=== PATIENT | male | born 1980 | race African-American/Black ===

== ENCOUNTER 2017-03-21 18:41 | Emergency (ER) | payer MEDICAID, OTHER ==
[~2017-03-21] VITALS: Ht 180.3 cm; Wt 123.0 kg
[~2017-03-21 18:41] MED LIST: ALBU17AE26; BENADRYL; PREDNISONE; RISPERDAL
[2017-03-21] MEDS ORDERED: TRAMADOL 50MG TABLET PO ONE (21:15)
[2017-03-21 21:50] VITALS: BP 122/78
== END 2017-03-21 21:50 | disposition home or self-care (01) ==
LOC: ER 18:41
DX: M54.9 Dorsalgia, unspecified (principal); E11.9 Type 2 diabetes mellitus without complications; Z88.6 Allergy status to analgesic agent; Z88.8 Allergy status to other drugs, medicaments and biological substances
CPT/HCPCS: 99283

== ENCOUNTER 2017-06-19 12:15 | Emergency (ER) | payer MEDICAID, OTHER ==
[~2017-06-19] VITALS: Ht 180.3 cm; Wt 120.0 kg
[2017-06-19 12:16] VITALS: BP 131/78
== END 2017-06-19 18:03 | disposition left against medical advice (07) ==
LOC: ER 12:15
DX: M79.1 Myalgia (principal); Z53.21 Procedure and treatment not carried out due to patient leaving prior to being seen by health care provider

== ENCOUNTER 2017-06-30 22:54 | Emergency (ER) | payer MEDICAID ==
[~2017-06-30] VITALS: Ht 177.8 cm; Wt 120.0 kg
[2017-07-01 06:41] LABS: BASOPHILS % 0.8 % (0.0-2.0); EOSINOPHILS % 6.2 % (0.0-5.0); HEMATOCRIT. 42.9 % (42.0-52.0); HEMOGLOBIN. 14.4 g/dL (14.0-18.0); LYMPHOCYTES % 23.6 % (20.0-50.0); MEAN CORPUSCULAR HEMOGLOBIN 32.5 pg (28.0-32.0); MONOCYTES % 7.8 % (2.0-8.0); NEUTROPHILS % 61.6 % (40.0-76.0); PLATELET 138 x1000/uL (130-400); RED BLOOD CELL COUNT 4.42 mill/uL (4.7-6.1); RED CELL DISTRIBUTION WIDTH 13.3 % (11.6-14.6)
[2017-07-01 06:52] LABS: CHLORIDE 109 mEq/L (98-107)
[2017-07-01 06:58] LABS: ETHANOL BLOOD < 10 mg/dL
[2017-07-01 07:41] LABS: CLARITY URINE CLEAR (CLEAR); COLOR URINE YELLOW (YELLOW); KETONES URINE NEGATIVE (NEGATIVE); LEUKOCYTE ESTERASE URINE NEGATIVE (NEGATIVE); NITRITE URINE NEGATIVE (NEGATIVE); OCCULT BLOOD URINE NEGATIVE (NEGATIVE); PH URINE 6.5 (4.5-8.0); PROTEIN URINE NEGATIVE (NEGATIVE); SPECIFIC GRAVITY URINE 1.029 (1.005-1.030)
[2017-07-01 08:43] LABS: *AMPHETAMINES SCREEN URINE NEGATIVE (NEGATIVE)
[2017-07-01 08:44] LABS: *BARBITURATES SCREEN URINE NEGATIVE (NEGATIVE); *BENZODIAZEPINES SCREEN URINE NEGATIVE (NEGATIVE); *COCAINE SCREEN URINE NEGATIVE (NEGATIVE); CANNABINOID URINE SCREEN PRESUMTIVE POSITIVE (NEGATIVE); METHADONE URINE SCREEN NEGATIVE (NEGATIVE); OPIATES URINE SCREEN NEGATIVE (NEGATIVE); PHENCYCLIDINE URINE SCREEN PRESUMTIVE POSITIVE (NEGATIVE)
[2017-07-01 08:54] VITALS: BP 139/71
== END 2017-07-01 09:00 | disposition home or self-care (01) ==
LOC: ER 23:00
DX: S53.402A Unspecified sprain of left elbow, initial encounter (principal); Y00.XXXA Assault by blunt object, initial encounter; Y93.89 Activity, other specified; Y92.89 Other specified places as the place of occurrence of the external cause; I10 Essential (primary) hypertension; E11.9 Type 2 diabetes mellitus without complications; F12.10 Cannabis abuse, uncomplicated; F16.10 Hallucinogen abuse, uncomplicated; F17.210 Nicotine dependence, cigarettes, uncomplicated; Z88.6 Allergy status to analgesic agent; J45.909 Unspecified asthma, uncomplicated; Z88.8 Allergy status to other drugs, medicaments and biological substances
CPT/HCPCS: 36415; 73080; 80053; 80305; 80307; 80329; 81003; 82962; 85025; 99285; G0482

== ENCOUNTER 2017-12-25 13:15 | Emergency (ER) | payer MEDICAID, OTHER ==
[~2017-12-25] VITALS: Ht 180.3 cm; Wt 113.0 kg
[2017-12-25 14:36] LABS: BASOPHILS % 0.7 % (0.0-2.0); EOSINOPHILS % 6.6 % (0.0-5.0); HEMATOCRIT. 41.9 % (42.0-52.0); LYMPHOCYTES % 25.4 % (20.0-50.0); MEAN CORPUSCULAR HEMOGLOBIN 32.3 pg (28.0-32.0); MEAN CORPUSCULAR VOLUME 96.9 fL (80.0-94.0); MEAN PLATELET VOLUME 11.5 fl (7.4-10.4); MONOCYTES % 9.5 % (2.0-8.0); NEUTROPHILS % 57.8 % (40.0-76.0); PLATELET 135 x1000/uL (130-400); RED BLOOD CELL COUNT 4.32 mill/uL (4.7-6.1); RED CELL DISTRIBUTION WIDTH 13.1 % (11.6-14.6)
[2017-12-25 14:43] LABS: CHLORIDE 112 mEq/L (98-107)
[2017-12-25 14:50] LABS: ETHANOL BLOOD < 10 mg/dL
[2017-12-25] MEDS ORDERED: LORAZEPAM 1MG TABLET PO ONE (17:15)
[2017-12-25 18:12] LABS: *AMPHETAMINES SCREEN URINE NEGATIVE (NEGATIVE); *BARBITURATES SCREEN URINE NEGATIVE (NEGATIVE); *BENZODIAZEPINES SCREEN URINE NEGATIVE (NEGATIVE); *COCAINE SCREEN URINE NEGATIVE (NEGATIVE); CANNABINOID URINE SCREEN NEGATIVE (NEGATIVE); METHADONE URINE SCREEN NEGATIVE (NEGATIVE); OPIATES URINE SCREEN NEGATIVE (NEGATIVE); PHENCYCLIDINE URINE SCREEN PRESUMTIVE POSITIVE (NEGATIVE)
[2017-12-26 08:00] VITALS: BP 129/76
== END 2017-12-26 08:05 | disposition home or self-care (01) ==
LOC: ER 13:15
DX: F20.9 Schizophrenia, unspecified (principal); R45.851 Suicidal ideations; J45.909 Unspecified asthma, uncomplicated; E11.9 Type 2 diabetes mellitus without complications; I10 Essential (primary) hypertension; F12.10 Cannabis abuse, uncomplicated; Z88.6 Allergy status to analgesic agent
CPT/HCPCS: 36415; 80053; 80305; 80307; 80329; 85025; 99284; G0482

== ENCOUNTER 2018-04-27 19:40 | Emergency (ER) | payer MEDICAID, OTHER ==
[~2018-04-27] VITALS: Ht 182.9 cm; Wt 127.0 kg
[2018-04-27 22:58] VITALS: BP 148/108
== END 2018-04-28 00:32 | disposition left against medical advice (07) ==
LOC: ER 19:40
DX: M79.10 Myalgia, unspecified site (principal); G47.00 Insomnia, unspecified; F41.9 Anxiety disorder, unspecified; J45.909 Unspecified asthma, uncomplicated; E11.9 Type 2 diabetes mellitus without complications; F17.210 Nicotine dependence, cigarettes, uncomplicated; Z88.6 Allergy status to analgesic agent; Z88.5 Allergy status to narcotic agent
CPT/HCPCS: 99283

== ENCOUNTER 2018-04-28 03:45 | Emergency (ER) | payer MEDICAID, OTHER ==
[~2018-04-28] VITALS: Ht 175.3 cm; Wt 114.0 kg
[2018-04-28 03:57] VITALS: BP 148/107
== END 2018-04-28 06:00 | disposition left against medical advice (07) ==
LOC: ER 03:45
DX: Z53.21 Procedure and treatment not carried out due to patient leaving prior to being seen by health care provider (principal)

== ENCOUNTER 2022-02-15 18:08 | Emergency (ER) | payer MEDICAID ==
[~2022-02-15] VITALS: Ht 185.4 cm; Wt 108.0 kg
[2022-02-15 18:33] VITALS: BP 147/111
[2022-02-15] MEDS ORDERED: SODIUM CHLORIDE 0.9% 1,000 ML IV ONE (19:00)
[2022-02-15] MEDS ORDERED: METHOCARBAMOL 500MG TABLET PO ONE (19:00)
[2022-02-15 19:34] LABS: EOSINOPHILS % 1.8 % (0.0-5.0); HEMATOCRIT. 47.5 % (42.0-52.0); HEMOGLOBIN. 15.6 g/dL (14.0-18.0); LYMPHOCYTES % 17.2 % (20.0-50.0); MEAN CORPUSCULAR HEMOGLOBIN 32.2 pg (28.0-32.0); MEAN CORPUSCULAR VOLUME 97.8 fL (80.0-94.0); MEAN PLATELET VOLUME 11.2 fl (7.4-10.4); PLATELET 151 x1000/uL (130-400); RED BLOOD CELL COUNT 4.86 mill/uL (4.7-6.1)
[2022-02-15 19:40] LABS: CHLORIDE 107 mEq/L (98-107)
[2022-02-15] MEDS: METHOCARBAMOL 500MG TABLET PO NR ×5 (20:36→20:40)
[2022-02-15] MEDS ORDERED: ACETAMINOPHEN 325MG TABLET PO NR (20:45)
== END 2022-02-15 22:45 | disposition left against medical advice (07) ==
LOC: ER 18:08
DX: M54.89 Other dorsalgia (principal); M25.562 Pain in left knee; R07.89 Other chest pain; F12.10 Cannabis abuse, uncomplicated; Z88.5 Allergy status to narcotic agent; Z88.6 Allergy status to analgesic agent; V79.50XA Passenger on bus injured in collision with unspecified motor vehicles in traffic accident, initial encounter; Y93.89 Activity, other specified; Y92.488 Other paved roadways as the place of occurrence of the external cause
CPT/HCPCS: 36415; 71045; 73560; 80053; 84484; 85025; 85379; 96360; 99284; J7030; Z7610

== ENCOUNTER 2022-08-20 08:57 | Emergency (ER) | payer MEDICAID ==
[~2022-08-20] VITALS: Ht 182.9 cm; Wt 113.4 kg
[2022-08-20 09:07] VITALS: BP 146/80; PULSE 112; RESP 18; O2SAT 100
[2022-08-20 10:22] LABS: EOSINOPHILS % 2.8 % (0.0-5.0); HEMATOCRIT. 43.9 % (42.0-52.0); HEMOGLOBIN. 14.6 g/dL (14.0-18.0); LYMPHOCYTES % 25.7 % (20.0-50.0); MEAN CORPUSCULAR HEMOGLOBIN 32.5 pg (28.0-32.0); MEAN CORPUSCULAR VOLUME 98.2 fL (80.0-94.0); MEAN PLATELET VOLUME 10.6 fl (7.4-10.4); NEUTROPHILS % 60.5 % (40.0-76.0); PLATELET 165 x1000/uL (130-400); RED BLOOD CELL COUNT 4.47 mill/uL (4.7-6.1)
[2022-08-20 10:38] LABS: CHLORIDE 108 mEq/L (98-107)
[2022-08-20] MEDS ORDERED: ACETAMINOPHEN 325MG TABLET PO ONE (11:15)
[2022-08-20 12:06] VITALS: TEMP 98.9
[2022-08-20] MEDS ORDERED: METH-653 MT (12:23)
== END 2022-08-20 13:20 | disposition home or self-care (01) ==
LOC: ER 08:57
DX: M54.50 Low back pain, unspecified (principal); F17.200 Nicotine dependence, unspecified, uncomplicated; F12.10 Cannabis abuse, uncomplicated; E11.9 Type 2 diabetes mellitus without complications; I10 Essential (primary) hypertension; Z88.6 Allergy status to analgesic agent; Z88.8 Allergy status to other drugs, medicaments and biological substances
CPT/HCPCS: 36415; 80048; 85025; 99283

== ENCOUNTER 2023-01-03 02:16 | Emergency (ER) | payer MEDICAID, OTHER ==
[~2023-01-03] VITALS: Ht 170.2 cm; Wt 105.0 kg
[~2023-01-03 02:16] MED LIST changes: +METH-653 MT; +RISPERADOL
[2023-01-03 02:22] VITALS: BP 156/100; TEMP 98.1; O2SAT 98
[2023-01-03 02:28] VITALS: PULSE 120; RESP 16
[2023-01-03] MEDS ORDERED: SODIUM CHLORIDE 0.9% 1,000 ML IV ONE (02:30)
== END 2023-01-03 03:27 | disposition left against medical advice (07) ==
LOC: ER 02:16
DX: M54.9 Dorsalgia, unspecified (principal); Z53.21 Procedure and treatment not carried out due to patient leaving prior to being seen by health care provider
CPT/HCPCS: 99281; J7030

== ENCOUNTER 2023-03-11 22:20 | Emergency (ER) | payer OTHER ==
[~2023-03-11] VITALS: Ht 180.3 cm; Wt 113.0 kg
[2023-03-11 22:42] VITALS: O2SAT 100
[2023-03-11] MEDS ORDERED: HALOPERIDOL LACTATE 5MG/ML VIAL IM ONE (23:45)
[2023-03-12 00:07] LABS: BASOPHILS % 0.6 % (0.0-2.0); EOSINOPHILS % 8.2 % (0.0-5.0); HEMATOCRIT. 44.7 % (42.0-52.0); HEMOGLOBIN. 14.5 g/dL (14.0-18.0); LYMPHOCYTES % 28.3 % (20.0-50.0); MEAN CORPUSCULAR HEMOGLOBIN 31.7 pg (28.0-32.0); MEAN CORPUSCULAR HGB CONC 32.3 g/dL (31.0-37.0); MEAN CORPUSCULAR VOLUME 98.1 fL (80.0-94.0); MEAN PLATELET VOLUME 10.5 fl (7.4-10.4); MONOCYTES % 7.8 % (2.0-8.0); NEUTROPHILS % 55.1 % (40.0-76.0); PLATELET 258 x1000/uL (130-400); RED BLOOD CELL COUNT 4.56 mill/uL (4.7-6.1); RED CELL DISTRIBUTION WIDTH 14.5 % (11.6-14.6); WHITE BLOOD COUNT 8.4 x1000/uL (4.5-11.0)
[2023-03-12 00:35] LABS: ACETAMINOPHEN 8 ug/mL (10-30); ALANINE AMINOTRANSFERASE 25 IU/L (10-49); ALBUMIN 4.1 g/dL (3.2-4.8); ASPARTATE AMINOTRANSFERASE 23 IU/L (<34); BILIRUBIN TOTAL 0.5 mg/dL (0.1-1.0); CALCIUM 9.8 mg/dL (8.7-10.4); CARBON DIOXIDE 29 mEq/L (21-32); CHLORIDE 104 mEq/L (98-107); CREATININE 1.1 mg/dL (0.6-1.3); GLUCOSE 103 mg/dL (70-105); POTASSIUM 4.2 mEq/L (3.5-5.1); PROTEIN TOTAL 7.2 g/dL (6.0-8.3); SODIUM 142 mEq/L (136-145); UREA NITROGEN BLOOD 16 mg/dL (9-23)
[2023-03-12 00:41] LABS: ETHANOL BLOOD < 10 mg/dL (<10)
[2023-03-12] MEDS: ARIPIPRAZOLE 5MG TABLET PO SCH (11:46)
[2023-03-12 11:56] LABS: CLARITY URINE TURBID (CLEAR); COLOR URINE YELLOW (YELLOW); GLUCOSE URINE NEGATIVE (NEGATIVE); KETONES URINE NEGATIVE (NEGATIVE); LEUKOCYTE ESTERASE URINE NEGATIVE (NEGATIVE); NITRITE URINE NEGATIVE (NEGATIVE); OCCULT BLOOD URINE NEGATIVE (NEGATIVE); PH URINE 8.5 (4.5-8.0); PROTEIN URINE NEGATIVE (NEGATIVE); SPECIFIC GRAVITY URINE 1.015 (1.005-1.030); UROBILINOGEN URINE 0.2 E.U./dL (0.2-1.0)
[2023-03-12 12:15] LABS: SQUAMOUS EPITHELIAL CELL URINE 1+ /lpf (RARE/1+)
[2023-03-12 12:16] LABS: RBC URINE 0-2 /hpf (0-2)
[2023-03-12 12:17] LABS: AMORPHOUS SEDIMENT URINE 2+ /lpf; BACTERIA URINE TRACE
[2023-03-12 13:30] LABS: *AMPHETAMINES SCREEN URINE NEGATIVE (NEGATIVE); *BARBITURATES SCREEN URINE NEGATIVE (NEGATIVE); *BENZODIAZEPINES SCREEN URINE NEGATIVE (NEGATIVE); *COCAINE SCREEN URINE NEGATIVE (NEGATIVE); CANNABINOID URINE SCREEN NEGATIVE (NEGATIVE); ECSTASY MDMA SCREEN URINE NEGATIVE (NEGATIVE); METHADONE URINE SCREEN Neg (NEGATIVE); OPIATES URINE SCREEN NEGATIVE (NEGATIVE); PHENCYCLIDINE URINE SCREEN PRESUMTIVE POSITIVE (NEGATIVE)
[2023-03-12] MEDS ORDERED: CYCLOBENZAPRINE 10MG TABLET PO ONE (16:15)
[2023-03-12] MEDS ORDERED: ACETAMINOPHEN 325MG TABLET PO ONE (17:15)
[2023-03-13] MEDS ORDERED: ACETAMINOPHEN 325MG TABLET PO ONE (08:45)
[2023-03-13] MEDS: ARIPIPRAZOLE 5MG TABLET PO SCH (10:24)
[2023-03-13 15:25] VITALS: BP 131/91; PULSE 94; RESP 20; TEMP 98.4
== END 2023-03-14 19:38 ==
LOC: ER 22:20
DX: R44.0 Auditory hallucinations (principal); R05.9 Cough, unspecified; F32.9 Major depressive disorder, single episode, unspecified; E11.9 Type 2 diabetes mellitus without complications; I10 Essential (primary) hypertension; F12.10 Cannabis abuse, uncomplicated; Z20.822 Contact with and (suspected) exposure to COVID-19
CPT/HCPCS: 36415; 71045; 80053; 80305; 80307; 80320; 80329; 81001; 82962; 85025; 87426; 96372; 99284; 99285; G0480

== ENCOUNTER 2024-04-18 02:34 | Emergency (ER) | payer OTHER ==
[~2024-04-18 02:34] MED LIST changes: +ALBU18HF2 IH; +GUAI600T26 MT; +LEVO750T68 MT; +PROZAC
[2024-04-18 02:47] VITALS: PULSE 56; O2SAT 97
== END 2024-04-18 02:59 | disposition left against medical advice (07) ==
LOC: ER 02:34
DX: S20.229A Contusion of unspecified back wall of thorax, initial encounter (principal); X58.XXXA Exposure to other specified factors, initial encounter; Y93.89 Activity, other specified; Y92.89 Other specified places as the place of occurrence of the external cause; Y99.8 Other external cause status
CPT/HCPCS: 99281